=== PATIENT | male | born 1965 | race Caucasian/White ===

== ENCOUNTER 2017-06-13 09:06 | Emergency (ER) | payer OTHER ==
[~2017-06-13] VITALS: Ht 177.8 cm; Wt 61.9 kg
[2017-06-13] MEDS ORDERED: ONDANSETRON 2MG/ML, 2ML IVPush ONE (10:00)
[2017-06-13] MEDS ORDERED: PLEASE ENTER ALLERGIES MC SCH ×2 (10:00)
[2017-06-13] MEDS ORDERED: SODIUM CHLORIDE FLUSH 10ML SYR IVF ONE (10:00)
[2017-06-13] MEDS ORDERED: SODIUM CHLORIDE 0.9% 1,000ML IVBOLUS ONE (10:00)
[2017-06-13 10:09] LABS: BLOOD UREA NITROGEN 18 mg/dL (7-18)
[2017-06-13 10:11] LABS: HEMATOCRIT 51.6 % (39.2-51.8); HEMOGLOBIN 17.6 g/dL (13.7-18.0); WHITE BLOOD COUNT 9.1 x10^3/uL (3.4-10)
[2017-06-13] MEDS ORDERED: ONDANSETRON 2MG/ML, 2ML ONE (10:17)
[2017-06-13 12:18] VITALS: BP 115/68
== END 2017-06-13 12:19 | disposition home or self-care (01) ==
LOC: ED 10:38
DX: R19.7 Diarrhea, unspecified (principal); R11.0 Nausea
CPT/HCPCS: 36415; 80048; 82040; 85025; 96361; 96374; 99284; J2405; J7030